=== PATIENT | male | born 1940 | race Caucasian/White ===

== ENCOUNTER → 2017-09-19 | Day surgery (SDC) | payer OTHER ==
--- NOTE | 2017-09-18 12:18 | MH ---
cc: Roni Andersen DMD DATE OF ADMISSION: 09/19/2017 HISTORY OF PRESENT ILLNESS: Mr. Coleman is a male that I have been treating for the last 1 year. He presented to me, status post previous teeth extractions in his mandible several months before that and he never healed. He has had constant pain and irregular bone contour. At that point, it was noted that the patient has a history of throat cancer and he had radiation for treatment of the throat cancer and he had radiation involving the mandible. The patient was never sent for hyperbaric oxygen treatment prior to extraction of those teeth by his dentist. So at that point, then we proceeded to send the patient for hyperbaric oxygen treatment, removed all irregularities of the bone, smoothened out the bone and then also sent the patient for infectious disease with a PICC line, to help control that infection. 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 There is an area on the left anterior mandible that is not healing still. Multiple attempts of 10 minute debridement was done, still not successful. The rest of the mandible appears stable. So the plan is to take the patient to the operating room and examine under anesthesia, debride the anterior mandible, specifically near the region of the left side, send for biopsy and culture as needed. Benefits, risks and indication of the procedure, procedure details and the options of no treatment including alternatives were all discussed with this patient. Risks not limited to any postop pain, infection, bleeding, damage to the adjacent soft tissue or hard tissue or anesthesia complications, jaw fracture, if the site does not heal, possible resection of the mandible, with hardware plating. All questions and concerns were addressed. PAST MEDICAL HISTORY: History of throat cancer, dizziness, peripheral neuropathy, thyroid disease. PAST SURGICAL HISTORY: Neck surgery, jaw surgery for debridement of the mandible. ANESTHESIA PROBLEMS: Denied. AND DEVELOPMENT: Reports normal. INFECTIOUS DISEASE: Denied. AUTOIMMUNE DISORDERS: Denied. MEDICATIONS: Vitamin D, Lotrimin, amlodipine, duloxetine, gabapentin, hydrocodone, meloxicam, levothyroxine. ALLERGIES: DENIED. FAMILY HISTORY: Family diseases denied. SOCIAL HISTORY: Normal. Still smokes tobacco. Eating normally. Everyday alcohol. Sleeping normal. Denies any illicit drug use. REVIEW OF SYSTEMS: Weight 160 pounds, height 5 feet 10 inches. Denies any significant weight loss. HEAD: Denies any headaches. History of dizziness and injury. Denies any seizures. Unsure why he reports for the dizziness injury, peripheral neuropathy. He has a history of fractured skull with concussions. EYES: Wears glasses for his vision. Denies any double vision, tearing or blind spots. NOSE: Denies any bleeding, obstruction, discharges. MOUTH: Dental difficulties of lower dentures, sometimes gives him problems there. Denies any gingival bleeding. THROAT: He has some hoarseness and soreness, history of thyroid disease. Secondary to radiation and a dry mouth. There is history of throat cancer. LYMPH NODES: Denies any local or granular enlargement. RESPIRATORY: Denies any TB. History of shortness of breath and cough, sometimes due to dry cough daily. Denies any asthma, COPD and sleep apnea. CARDIOVASCULAR: Denies any pericardial pain. History of hypertension. Denies any murmur, shortness of breath on exertion, edema or phlebitis, rheumatic fever, heart surgery. PHYSICAL EXAMINATION: VITAL SIGNS: Pulse is 77, blood pressure is 176/103, oxygen saturations 99. GENERAL: Alert, awake and oriented x3, in no acute distress, well-groomed male. HEENT: Head is normocephalic. Eyes: Pupils are equal, round, reactive to light and accommodation. Extraocular movements are intact. Nose: Symmetrical. Nares patent. Mouth: Intraorally the tissues look pink and healthy on the mandibular alveolar ridge. The left side of the mandible anteriorly has got some tenderness, but there is no elevation of floor of the mouth or the tongue. The tissues looked moist. Decreased salivary flow noted. NECK: Positive range of movement. Chin on the left anterior region inferior border of the mandible, history of a draining fistula that is noted. CARDIOVASCULAR: Regular rate and rhythm. RESPIRATORY: Clear to auscultation bilaterally. ABDOMEN: Nontender, nondistended, soft. GASTROINTESTINAL: Positive bowel sounds. GENITOURINARY: Deferred. EXTREMITIES: Positive range of movement lower extremity. Left shoulder arthritis limits movement. NEUROLOGIC: Cranial nerves 2-12 grossly intact. IMAGING STUDIES: A cone beam CT in our office shows a radiolucency with destruction of the bone on the lingual aspect of the anterior part of the mandible on the left side. Region where the fistula was trying to drain out of on the left side of the neck. It appears to have bony destruction. 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 He did have throat cancer, which was treated by chemo and radiation. He has already had HBO treatment and infectious disease with a PICC line, but still not resolving in that one location. Plan is to debride the mandible, send for biopsy and exam under anesthesia on the left side of the mandible anterior region. The patient has been counseled on cessation of smoking and also alcohol to help facilitate the healing process. Roni Andersen DMD RT/TL , 10:56 AM , 12:17 PM
[~2017-09-19] VITALS: Ht 177.8 cm; Wt 71.3 kg
[~2017-09-19] MED LIST: *LABETALOL HCL 100 MG/20 ML VIAL PERIprocedural Use ONLY ONE; *morphine SULFATE 4 MG/ML PERIprocedure ONLY ONE; CHLORHEXIDINE GLUCONATE 0.12% 15 ML CUP ONE; CHLORHEXIDINE GLUCONATE 2 % 1 PACK (2 CLOTHS) TOPICAL PRN; DEXAMETHASONE SOD PHOS 4 MG/ML VIAL IV ONE; DO NOT ADM ANY ANTICOAGULANT DRUGS PRN; DULO1CAP3 PO; ESMOLOL HCL 100 MG/10 ML VIAL IV ONE; GABA300C5 PO; GELATIN 12 MM/7 MM FOAM ONE; GLYCOPYRROLATE 1 MG/5 ML SYRINGE IV PUSH ONE; HYDR-3583 PO; LACTATED RINGER'S 1000 ML IV PRN; LEVO75TA3 PO; LIDOCAINE 2%/EPINEPHrine PF 1:200,000 20ML SDV ONE; LIDOCAINE HCL 1% PF 5 ML SYRINGE OTHER ONE; LOSA50TA PO; MELO15TA20 PO; METOPROLOL TARTRATE 25 MG TAB PO PRN; MICROFIBRILLAR COLLAGEN HEMOSTAT 1 GM PKT ONE; NEOSTIGMINE 5 MG/5 ML SYRINGE IV PUSH ONE; NORV2.5T PO; ONDANSETRON HCL 4 MG/2 ML VIAL IV ONE; POVIDONE IODINE 5% (ANTISEPSIS KIT) 4 APPLICATIONS EACH NARE PRN; PROPOFOL 200 MG/20 ML AMP IV ONE; ROCURONIUM INJ 50 MG/5 ML SYRINGE IV PUSH ONE; SODIUM CHLORID 0.9% 500 ML IV PRN; VITA1000 PO; ceFAZolin 1,000 MG/NS 100 ML IV SCH; ePHEDrine/NS 25 MG/5 ML SYRINGE IV ONE
--- NOTE | 2017-09-19 13:58 | EKG ---
Date Performed: 09/19/2017 Time Performed: 13:10:12 PTAGE: 77 years EKG: Sinus rhythm NORMAL ECG No significant change from prior electrocardiogram. PREVIOUS TRACING : 10/03/2012 14.06 DOCTOR: Jeff Almanzar Interpretating Date/Time 09/19/2017 13:56:09
[2017-09-19 14:11] LABS: AUTOMATED NEUTROPHIL # 3.3 TH/MM3 (1.8-7.7); BASOPHIL % 0.9 % (0.0-2.0); EOSINOPHIL # 0.1 TH/MM3 (0-0.4); EOSINOPHIL % 2.8 % (0.0-4.0); HEMATOCRIT 44.7 % (39.0-51.0); HEMOGLOBIN 15.4 GM/DL (13.0-17.0); LYMPH % 13.1 % (9.0-44.0); LYMPHOCYTE # 0.6 TH/MM3 (1.0-4.8); MEAN CELL VOLUME 96.9 FL (80.0-100.0); MEAN CORPUSCULAR HEMOGLOBIN 33.3 PG (27.0-34.0); MEAN CORPUSCULAR HGB CONC 34.4 % (32.0-36.0); MEAN PLATELET VOLUME 7.2 FL (7.0-11.0); MONO % 10.9 % (0.0-8.0); MONOCYTE # 0.5 TH/MM3 (0-0.9); NEUT % 72.3 % (16.0-70.0); PLATELET COUNT 283 TH/MM3 (150-450); RED BLOOD COUNT 4.62 MIL/MM3 (4.50-5.90); RED CELL DISTRIBUTION WIDTH 13.5 % (11.6-17.2); WHITE BLOOD COUNT 4.5 TH/MM3 (4.0-11.0)
[2017-09-19 16:31] VITALS: BP 93/57; TEMP 99; O2SAT 95
[2017-09-19 17:25] VITALS: BP 182/90; PULSE 57; RESP 18; TEMP 96.4; O2SAT 96
--- NOTE | 2017-09-19 18:20 | MP ---
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 PROCEDURE PERFORMED: Irrigation and debridement of the left anterior mandible. Also, biopsy of the bone/inflammatory tissue on the left mandible. ANESTHESIA: General, also 2% lidocaine with 1:200,000 epinephrine, approximately 6 mL. SURGEON: Roni Andersen DMD HEALTH INSURANCE ASSESSOR: Alfonzo Tobias COMPLICATIONS: None. SPECIMENS: Bone and the inflammatory tissue in the left mandible. ESTIMATED BLOOD LOSS: 1 mL DISPOSITION: The patient tolerated the procedure well, extubated and taken to the PACU. INDICATIONS FOR PROCEDURE: Mr. Coleman is a 77-year-old male that had a previous history of throat cancer and he had chemotherapy and radiation to it. Subsequent to that, he had all of his lower teeth taken out and the bone never healed properly. The old extraction sites never healed properly. A biopsy was taken and came back as osteomyelitis. Also, suspicion for osteoradionecrosis as per the clinical and radiographic exam. He was sent for HBO treatment and we debrided the bone and smoothed out all the bone at that point. Then, he was also sent for PICC line for IV antibiotics. The site was healing fine, but then again deemed to have a draining fistula on the left anterior mandible and then so we went several times to debride that mandible. It is still not resolving. So, the plan today is to do an exam and evaluation and debride this mandible and take a piece of this bone for evaluation for pathology. Benefits, risks, indications of the procedure, procedure in detail and the options of no treatment and alternatives were discussed with this patient. Risks not limited to any postop pain, infection, bleeding, damage to the adjacent soft tissue or hard tissue, anesthesia complications, numbness, possible resection of the mandible, plating of the mandible. All questions and concerns were addressed. Consent is signed in the chart. PROCEDURE IN DETAIL: The patient was met perioperatively, past medical history was reviewed, updated, no changes noted. Left side of the anterior part was then marked. The patient was taken to the operating suite, placed on the table in the supine position. He underwent oral intubation. Eyes were taped shut. All pressure points were padded. Betadine prep was done over the operative site. At this time, a timeout was taken to identify the patient, the site, the procedure, surgeon. All were in agreement. The patient was draped in normal sterile fashion. Examination under anesthesia shows a fistula on the left anterior chin. Intraorally, the bone looked stable. There is no false point of motion of the mandible. There is no crepitus that is noted. There is no intraoral edema or inflammation that is noted. No elevation of floor of the mouth or the tongue. 2% lidocaine with 1:200,000 epinephrine was injected in a femoral nerve block and mental block and over the operative site. A bite block, throat pack was placed in the mouth. Peridex mouth rinse and saline irrigation was done. A crestal incision was made from the number 18, [address] down to the mid portion of the mandible. Flap was gently reflected on the buccal and slightly on the lingual. When I encountered the hole, which we can see clinically on the region of approximately where the canine is, inflammatory tissue was debrided, was all curetted out and sent for biopsy. Now, that is sitting exactly superior to where the fistula is. I took a nice round football bur and started to debride the mandible, in the crestal bone and down there, and I kept on getting deeper especially into the hole to take out all of the nonsalvageable tissue and I just did not encounter any bleeding bone, which is avascular, the bone was like ghost white. It is still supplied with good periosteum and the soft tissues still bleed around the bone, but the bone itself in this whole anterior mandible going up on the left side and going to the posterior just does not appear to be healthy and viable. The bone feels very hard. There is no false point of motion. So, at this point, I took a bur and took a small indentation to the bone and took out a piece of bone for biopsy. Again, that whole area did not bleed also. Then, finally made an incision on the anterior chin, going towards the left side. I went down to the bone, irrigated and debrided where the fistula was. Again, not very healthy bone that is noted, but there is no detachment of any loose bone or that I could see at this point. So, once this was done, at this point, I irrigated again with saline solution and closed with 3-0 chromic suture, silk and 5-0 Prolene on the outside. Came back inside the mouth again, debrided with the saline solution. Again, went towards the lingual aspect, just to see if there are any loose bony sequestrum, there is none. Everything is healthy and good. So, now again, I went slightly back to the buccal also, just to reexamine this bone. It is avascular at this point. Even after all the reduction and debridement of the bone, I could not find any healthy bone. So, at this point, Gelfoam was now placed over the area where the bone was debrided into the hole where we went initially and closed with 3-0 chromic suture. Back of the throat was suctioned. Moistened Ray-Chadd and the bite blocks were all removed. Lidocaine 2% with 1%200,000 epinephrine was again injected over the mental region of the nerve block. DISCUSSION: I have great area of concern at this point. All of the bone is hard and firm. It does not appear to be viable. We will consider sending the patient for more HBO. There is a possibility that he may have a resection and plating at this point. I will continue to monitor how the patient progresses. At the end of the case, I also spoke to his daughter via telephone and she tells me the patient smokes a lot every day, drinks a lot every day. He is on medications for nerve pain and also for hydrocodone 10/325. As per my questioning of the patient during the history and physical and during all this 2 years I have known him, he just says occasionally he smokes and some alcohol every night, but just light as he needs it. The patient will be counseled on the importance of being compliant with alcohol, tobacco, and we will try to find out also who is prescribing all his hydrocodone, as even the daughter says that he does not require those medications. He lives with his daughter right next door to her house. He has a good supportive family. So we will continue to monitor this patient and treat him accordingly. GURPREET Eduardo/CHER/[place] , 04:55 PM , 05:48 PM SUNNI
== END | disposition home or self-care (01) ==
LOC: HSDC 12:24
PROVIDERS: ATTEND Dentist Oral and Maxillofacial Surgery
DX: M87.08 Idiopathic aseptic necrosis of bone, other site (principal); M27.2 Inflammatory conditions of jaws; C14.0 Malignant neoplasm of pharynx, unspecified; E07.9 Disorder of thyroid, unspecified; G62.9 Polyneuropathy, unspecified; M86.9 Osteomyelitis, unspecified; Z92.3 Personal history of irradiation; Z92.21 Personal history of antineoplastic chemotherapy
CPT/HCPCS: 00190; 11044; 20220; 85025; 88307; 88311; 93005; J0690; J1100; J2270; J2405; J2710; J7120